=== PATIENT | male | born 1975 | race Caucasian/White ===

== ENCOUNTER 2021-06-14 10:00 | Inpatient (IN) | payer OTHER ==
[~2021-06-14] VITALS: Ht 180.3 cm; Wt 117.4 kg
[~2021-06-14 10:00] MED LIST: ALLO100; DAILY MULTIPLE1 EACH; IBUP800; Norvasc2.5 MG; OMEP20ER; Prinivil10 MG; RXOXYACE PO
[2021-06-14 10:57] LABS: BASOPHILS ABSOLUTE AUTO 0.01 K/mm3 (0.00-0.23); BASOPHILS PERCENT AUTO 0 % (0-2); EOSINOPHILS PERCENT AUTO 0 % (0-6); Hematocrit 41.2 % (37.0-53.0); Hemoglobin 14.3 g/dL (13.5-17.5); IMMATURE GRAN ABSOLUTE AUTO 0.01 K/mm3 (0.00-0.10); IMMATURE GRAN PERCENT AUTO 0 % (0-1); LYMPHOCYTES ABSOLUTE AUTO 0.48 K/mm3 (0.84-5.20); LYMPHOCYTES PERCENT AUTO 13 % (21-46); MONOCYTES ABSOLUTE AUTO 0.23 K/mm3 (0.16-1.47); MONOCYTES PERCENT AUTO 6 % (4-13); Mean Corpuscular HGB 30.2 pg (26.0-34.0); Mean Corpuscular HGB Conc 34.7 g/dL (31.5-36.5); Mean Corpuscular Volume 87 fL (80-100); Mean Platelet Volume 10.1 fL (9.1-12.4); NEUTROPHILS ABSOLUTE AUTO 2.93 K/mm3 (1.96-9.15); NEUTROPHILS PERCENT AUTO 80 % (41-73); Platelet Count 161 K/mm3 (150-400); RDW Coefficient Variation 12.4 % (11.7-14.2); RDW Standard Deviation 39.7 fL (35.1-46.3); Red Blood Cell Count 4.73 M/mm3 (4.30-5.90); White Blood Cell Count 3.66 K/mm3 (4.00-11.30)
[2021-06-14 11:05] LABS: Albumin, Blood 3.5 g/dL (3.4-5.0); Albumin/Globulin Ratio 0.8 (0.8-1.8); Bilirubin, Total 0.3 mg/dL (0.1-1.0); Bun/Creatinine Ratio 10.2 (12.0-20.0); Calcium, Blood 8.1 mg/dL (8.5-10.1); Creatinine, Blood 1.57 mg/dL (0.60-1.20); Globulin, Blood 4.2 g/dL (2.2-4.0); Potassium, Blood 3.8 mmol/L (3.5-5.5); Total Protein, Blood 7.7 g/dL (6.4-8.2)
[2021-06-14 11:23] LABS: International Normalized Ratio 1.06; Prothrombin Time Results 11.4 Sec (9.7-11.5)
--- NOTE | 2021-06-14 18:43 | NUR ---
REPORT OBTAINED VIA PHONE FROM BRENDA RN AT 1547, PT ARRIVED VIA STRETCHER AT 1610; AIRBORNE PRECAUTIONS OBSERVED; DINNER SERVED, FLUIDS INITIATED, IVS ASSESSED, PHYSICAL PRESENTATION ASSESSED, HEALTH HISTORY ASSESSED, AND PT ASSISTED TO BATHROOM; PT HAS CLEAR LUNG SOUNDS AND IS SATTING 86-89% ON 5LNC; PT DENIES ADDITIONAL CONCERNS AT THIS TIME
[2021-06-15 04:14] LABS: BASOPHILS PERCENT AUTO 0 % (0-2); EOSINOPHILS PERCENT AUTO 0 % (0-6); Hematocrit 38.2 % (37.0-53.0); Hemoglobin 13.2 g/dL (13.5-17.5); IMMATURE GRAN ABSOLUTE AUTO 0.01 K/mm3 (0.00-0.10); IMMATURE GRAN PERCENT AUTO 0 % (0-1); LYMPHOCYTES ABSOLUTE AUTO 0.49 K/mm3 (0.84-5.20); LYMPHOCYTES PERCENT AUTO 16 % (21-46); MONOCYTES ABSOLUTE AUTO 0.22 K/mm3 (0.16-1.47); MONOCYTES PERCENT AUTO 7 % (4-13); Mean Corpuscular HGB 29.9 pg (26.0-34.0); Mean Corpuscular HGB Conc 34.6 g/dL (31.5-36.5); Mean Corpuscular Volume 87 fL (80-100); Mean Platelet Volume 9.9 fL (9.1-12.4); NEUTROPHILS ABSOLUTE AUTO 2.33 K/mm3 (1.96-9.15); NEUTROPHILS PERCENT AUTO 76 % (41-73); Platelet Count 153 K/mm3 (150-400); RDW Coefficient Variation 12.4 % (11.7-14.2); RDW Standard Deviation 39.5 fL (35.1-46.3); Red Blood Cell Count 4.41 M/mm3 (4.30-5.90); White Blood Cell Count 3.05 K/mm3 (4.00-11.30)
[2021-06-15 04:37] LABS: Albumin, Blood 2.9 g/dL (3.4-5.0); Albumin/Globulin Ratio 0.8 (0.8-1.8); Bilirubin, Total 0.4 mg/dL (0.1-1.0); Bun/Creatinine Ratio 12.6 (12.0-20.0); Calcium, Blood 7.9 mg/dL (8.5-10.1); Creatinine, Blood 1.35 mg/dL (0.60-1.20); Globulin, Blood 3.6 g/dL (2.2-4.0); Potassium, Blood 3.9 mmol/L (3.5-5.5); Total Protein, Blood 6.5 g/dL (6.4-8.2)
--- NOTE | 2021-06-15 05:18 | NUR ---
SHIFT SUMMARY PT RESTED WELL THROUGH THE NIGHT. ALERT AND ORIENTED, ABLE TO MAKE NEEDS KNWON. COOPERATIVE WITH PLAN OF CARE. SATS 88-92% ON AIRVO 80%FIO2/50L. TAUGHT PATIENT PRONING - PT STATED THAT SEEMED TO HELP HIM SOME. TELE - NSR. NO C/O CHEST PAIN, BUT MUSCLE PAIN AROUND RIBS RELATED TO DRY COUGH. VOIDING TO URINAL, FREQUENT BM'S. VSS. CALL LIGHT WITHIN REACH, BED IN LOWEST POSITION. WILL CONTINUE TO MONITOR.
--- NOTE | 2021-06-15 19:41 | NUR ---
SHIFT SUMMARY: NO ACUTE CHANGES T/OUT SHIFT. PT CONTINUES A&OX4, MAINTAINING O2 SATS >90% ON AIRVO WITH 86% FIO2 AND 50 L/MIN. PT DENIES CHEST PAIN/PRESSURE, DOES C/O BODY ACHES AND CHEST WALL PAIN R/T COUGHING THAT IS RELIEVED BY PRN MEDICATIONS. PT DENIES PRONING POSITION R/T ABDOMINAL DISCOMFORT HE DESCRIBES GAS. PROVIDER NOTIFIED, PRN MEDICATIONS ORDERED AND GIVEN TO PT. SIN RHYTHM CONTINUES ON MONITOR. REMDESIVIR INFUSION INITIATED PER ORDERS, PT TOLERATED WELL, NS CONTINUES AT 100 ML/HR. REPORT HAS BEEN GIVEN TO KULDEEP LOPEZ TO ASSUME CARE OF PT.
--- NOTE | 2021-06-16 05:41 | NUR ---
SENIOR DATA MINING ANALYST SUMMARY PT WAS ABLE TO LAY PRONE FOR THE FIRST 4 HOURS OF THE SHIFT HOWEVER HIS O2 SATS HAVE REMIANED HIGHER WHEN HE IS ON HIS BACK OR HIS SIDE. O2 SATS WHILE PRONE RANGED FROM 82-90 BUT ON HIS BACK HE HAS REMAINED 88-95%. PT'S AIRVO SETTINGS HAVE BEEN 50L AT 88% ALL SHIFT. PT HAD ONE EPISODE OF DIARRHEA THIS SHIFT. PT'S O2 SATS TOLERATE AMBULATION WELL ALTHOUGH PT BECOMES RANDAL TACHYPNEIC WHILE UP. BP WNL AND STABLE THIS SHIFT. PT AFEBRILE THIS SHIFT W PEAK TEMP AT 98.5. WILL REPORT TO ONCOMING RN.
--- NOTE | 2021-06-16 19:45 | NUR ---
SHIFT SUMMARY: NO ACUTE CHANGES T/OUT SHIFT. PT CONTINUES A&OX4, AIRVO SETTINGS CONTINUE 88% AND 50 L/MIN WITH PT SATS MAINTAINED >90%, SR ON MONITOR. PT CONTINUES INDEPENDENT IN ROOM, TRANSITIONING FROM LYING TO SITTING TO BEDSIDE CHAIR WITH MINIMAL CHANGE IN O2 SATS. PT REPORTS 2 BOUTS OF DIARRHEA, DENIES CHANGE IN QUALITY. REPORT HAS BEEN GIVEN TO KULDEEP LOPEZ TO ASSUME CARE OF PT.
[2021-06-17 04:49] LABS: BASOPHILS PERCENT AUTO 0 % (0-2); EOSINOPHILS PERCENT AUTO 0 % (0-6); Hematocrit 39.2 % (37.0-53.0); Hemoglobin 13.4 g/dL (13.5-17.5); IMMATURE GRAN ABSOLUTE AUTO 0.02 K/mm3 (0.00-0.10); IMMATURE GRAN PERCENT AUTO 0 % (0-1); LYMPHOCYTES ABSOLUTE AUTO 0.48 K/mm3 (0.84-5.20); LYMPHOCYTES PERCENT AUTO 9 % (21-46); MONOCYTES ABSOLUTE AUTO 0.52 K/mm3 (0.16-1.47); MONOCYTES PERCENT AUTO 10 % (4-13); Mean Corpuscular HGB 29.6 pg (26.0-34.0); Mean Corpuscular HGB Conc 34.2 g/dL (31.5-36.5); Mean Corpuscular Volume 87 fL (80-100); Mean Platelet Volume 9.7 fL (9.1-12.4); NEUTROPHILS ABSOLUTE AUTO 4.27 K/mm3 (1.96-9.15); NEUTROPHILS PERCENT AUTO 81 % (41-73); Platelet Count 207 K/mm3 (150-400); RDW Coefficient Variation 12.6 % (11.7-14.2); RDW Standard Deviation 39.8 fL (35.1-46.3); Red Blood Cell Count 4.53 M/mm3 (4.30-5.90); White Blood Cell Count 5.29 K/mm3 (4.00-11.30)
[2021-06-17 05:05] LABS: Anion Gap 6 mmol/L (6-16); Blood Urea Nitrogen 21 mg/dL (8-24); Bun/Creatinine Ratio 18.4 (12.0-20.0); CO2, Blood 26 mmol/L (21-32); Calcium, Blood 8.4 mg/dL (8.5-10.1); Chloride, Blood 103 mmol/L (98-108); Creatinine, Blood 1.14 mg/dL (0.60-1.20); Glomerular Filtration Rate >60 (60-); Glucose, Blood 104 mg/dL (70-99); Potassium, Blood 4.1 mmol/L (3.5-5.5); Sodium, Blood 135 mmol/L (136-145)
--- NOTE | 2021-06-17 05:31 | NUR ---
CITY WEIGHMASTER SUMMARY PT PLACED ON BIPAP BY RT AT START OF THE SHIFT WHICH THE PT KEPT ON UNITL 0500 WHEN HE BECAME ANXIOUS AND REQUESTED A BREAK SO HE WAS PLACED BACK ON AIRVO 50L 88% FIO2. PT CONTINUED TO HAVE PRODUCTIVE COUGH, TX WITH CODEINE COUGH MEDICATION PER EMAR W IMPROVEMENT. PT HAD >2L URINE OUTPUT THIS SHIFT. NO EPISODES OF DIARRHE THIS SHIFT. WILL REPORT TO ONCOMING RN.
--- NOTE | 2021-06-17 12:13 | NUR ---
CARE COORDINATION REFERRAL - ADMIT: 06/14/21 DISCHARGE: DX:PNEUMONIA DUE TO COVID-19 CC: KWILCOX PILY CALL: PT AT HOME RESIDENCE: HOME WITH SPOUSE CAREGIVER: MARIS CROWLEY, SPOUSE / PARTNER, DX: HTN, CHRONIC HEP C, COVID-19, GOUT, SEE LIST DME: NONE CCM: NONE HOME HEALTH: NONE SUMMARY: 06/17/21- SPOKE WITH OVER THE PHONE. SHE REPORTS THAT PRIOR TO COMING INTO THE HOSPITAL, PT WAS INDEPENDENT AND DID NOT NEED CAREGIVERS OR HOME HEALTH. STATES THEIR HOME IS A 2-STORY HOME WITH WORKING UTILITIES. REPORTS THAT PT HAS NEVER HAD ISSUES WITH USING THE STAIRS. PRIOR TO COMING INTO THE HOSPITAL, PT WAS DRIVING AND ABLE TO MAKE IT TO APPT. REPORTS THAT PT DOES NOT HAVE POA AND SHE IS HIS NEXT OF KIN. PT'S PHARMACY IS [facility]. WANTED IT TO BE DOCUMENTED THAT THOSE IN THE HOME ARE ALSO RECOVERING FROM COVID AND IF THE PT IS GOING TO NEED SIGNIFICANT AMOUNT OF HELP, SHE IS NOT SURE IF THEY CAN PROVIDE THAT CARE FOR HIM. -NICOLE
--- NOTE | 2021-06-17 19:12 | NUR ---
PT'S OXYGEN THERAPY LEVEL AND ROUTE TITRATED BY RT; PT LUNG SOUNDS DIMINISHED IN BASES; BED PLACED IN REVERSE TRENDELENBURG FOR COMFORT WHILE PRONING BUT PT REPORTED ANXIETY WHEN PRONING; ACTIVE BS; PT HAD 2 BM, ONE FORMED, ONE LOOSE; PT ASSISTED TO RECLINER TO IMPROVE OXYGENATION; PT'S DIET CHANGED TO VANILLA ENSURE WITH FRUIT DUE TO TASTE DISTURBANCES; PT'S VSS; MOORE; PT HAD ADEQUATE URINE OUTPUT AND PO FLUID INTAKE; PT DENIES ADDITIONAL CONCERNS AT THIS TIME
--- NOTE | 2021-06-18 05:40 | NUR ---
SHIFT SUMMARY PATIENT FOUND TO BE AN ANXIOUS MAN WHO IS A&OX4 WITH GEN WEAKNESS. UP IND IN ROOM. PATIENT REFUSED BED ALL NIGHT AND STATED CHAIR MAKES HIM BREATH EASIER THAN ANYTHING ELSE. CONTINUED TO ENCOURAGE LAYING PRONE IN BED WITH REEDUCATION ON WHY PRONING IS IMPORTANT. PATIENT STILL REFUSED AND RESTED WELL IN CHAIR ALL NIGHT WITH NO ACUTE DISTRES. ON CPAP WITH FIO2 OF 60% SATING HIGH 90'S. PRODUCTIVE COUGH CONTINUES WITH ROBUTUSSIN HELPING WITH EXPECTORATING. Q4H TRAMADOL TO HELP WITH RIB PAIN AND FOUND STAYING ON TOP OF THIS PAIN GREATLY HELPS WITH HIS BREATHING ALSO. VSS. NSR. GOOD OUPUT PER URINAL. POOR APPETITE CONTINUES AND ENCOURAGING ORAL INTAKE TOLERATED. PICC CLOTTED THIS AM DURING LAB DRAW SO ATEPLASE DWELLING AT THIS TIME. NO ACUTE CONCERNS. WILL CONTINUE TO MONITOR UNTIL REPORT GIVEN TO BALAJI RN.
--- NOTE | 2021-06-18 08:00 | NUR ---
pt sitting up in a recliner chair with cpap on, he denies pain at this time, reports productive cough of yellow sputum, lungs are clear in upper nieves, dim in bases, resp even and unlabored, placed him on 14 liters high flow cannula so he could eat a bit of breakfast, he maintained about ten minutes before sats dropping to mid 70's, immed placed cpap and bounced back up pretty quickly, hrr, tele in place running sr per monitor, see strip, no edema noted, ppp+1, cap refill< 3sec, vs stable, afebrile, iv site is clear and patent, btx4, abd flat soft nontender, voids without diff, skin c/w/d, ext are cool, janelle gaytan, call light in reach, pt has been refusing to prone, spoke to him about the importance of it, he was agreeable to try today.
[2021-06-18 08:57] LABS: BASOPHILS PERCENT AUTO 0 % (0-2); EOSINOPHILS ABSOLUTE AUTO 0.01 K/mm3 (0.00-0.68); EOSINOPHILS PERCENT AUTO 0 % (0-6); Hematocrit 39.3 % (37.0-53.0); Hemoglobin 13.2 g/dL (13.5-17.5); IMMATURE GRAN ABSOLUTE AUTO 0.05 K/mm3 (0.00-0.10); IMMATURE GRAN PERCENT AUTO 1 % (0-1); LYMPHOCYTES ABSOLUTE AUTO 0.39 K/mm3 (0.84-5.20); LYMPHOCYTES PERCENT AUTO 7 % (21-46); MONOCYTES ABSOLUTE AUTO 0.55 K/mm3 (0.16-1.47); MONOCYTES PERCENT AUTO 10 % (4-13); Mean Corpuscular HGB 29.5 pg (26.0-34.0); Mean Corpuscular HGB Conc 33.6 g/dL (31.5-36.5); Mean Corpuscular Volume 88 fL (80-100); Mean Platelet Volume 9.7 fL (9.1-12.4); NEUTROPHILS ABSOLUTE AUTO 4.48 K/mm3 (1.96-9.15); NEUTROPHILS PERCENT AUTO 82 % (41-73); Platelet Count 236 K/mm3 (150-400); RDW Coefficient Variation 12.6 % (11.7-14.2); Red Blood Cell Count 4.48 M/mm3 (4.30-5.90); White Blood Cell Count 5.48 K/mm3 (4.00-11.30)
[2021-06-18 09:11] LABS: Alanine Aminotransfer (ALT/SGP 135 U/L (12-78); Albumin, Blood 2.9 g/dL (3.4-5.0); Albumin/Globulin Ratio 0.7 (0.8-1.8); Alk Phos 57 U/L (50-136); Anion Gap 5 mmol/L (6-16); Aspartate Aminotrans (AST/SGOT 145 U/L (12-37); Bilirubin, Total 0.6 mg/dL (0.1-1.0); Blood Urea Nitrogen 24 mg/dL (8-24); Bun/Creatinine Ratio 24.8 (12.0-20.0); CO2, Blood 27 mmol/L (21-32); Calcium, Blood 8.4 mg/dL (8.5-10.1); Chloride, Blood 104 mmol/L (98-108); Creatinine, Blood 0.97 mg/dL (0.60-1.20); Globulin, Blood 3.9 g/dL (2.2-4.0); Glomerular Filtration Rate >60 (60-); Glucose, Blood 95 mg/dL (70-99); Potassium, Blood 4.2 mmol/L (3.5-5.5); Sodium, Blood 136 mmol/L (136-145); Total Protein, Blood 6.8 g/dL (6.4-8.2)
[2021-06-18 09:53] LABS: BAND PERCENT MAN 2 % (0-8); BASOPHILS PERCENT MAN 0 % (0-2); EOSINOPHILS PERCENT MAN 0 % (0-6); LYMPHOCYTES ABSOLUTE MAN 0.32 K/mm3 (0.84-5.20); LYMPHOCYTES PERCENT MAN 6 % (21-46); MONOCYTES ABSOLUTE MAN 0.21 K/mm3 (0.16-1.47); MONOCYTES PERCENT MAN 4 % (4-13); MYELOCYTE ABSOLUTE MAN 0.05 K/mm3 (0.00-0.00); MYELOCYTE PERCENT MAN 1 % (0-0); NEUTROPHILS ABSOLUTE MAN 4.87 K/mm3 (1.96-9.15); SEG NEUTROPHILS PERCENT MAN 87 % (41-73); TOTAL CELLS COUNTED 100
--- NOTE | 2021-06-18 18:48 | NUR ---
pt tolerated being on airbo long enough to eat dinner. no complaints or needs. had some soup for dinner. call light in reach.
[2021-06-19 03:57] LABS: BASOPHILS ABSOLUTE AUTO 0.01 K/mm3 (0.00-0.23); BASOPHILS PERCENT AUTO 0 % (0-2); EOSINOPHILS PERCENT AUTO 0 % (0-6); Hematocrit 37.5 % (37.0-53.0); Hemoglobin 12.9 g/dL (13.5-17.5); IMMATURE GRAN ABSOLUTE AUTO 0.07 K/mm3 (0.00-0.10); IMMATURE GRAN PERCENT AUTO 1 % (0-1); LYMPHOCYTES ABSOLUTE AUTO 0.48 K/mm3 (0.84-5.20); LYMPHOCYTES PERCENT AUTO 6 % (21-46); MONOCYTES ABSOLUTE AUTO 0.68 K/mm3 (0.16-1.47); MONOCYTES PERCENT AUTO 9 % (4-13); Mean Corpuscular HGB 29.5 pg (26.0-34.0); Mean Corpuscular HGB Conc 34.4 g/dL (31.5-36.5); Mean Corpuscular Volume 86 fL (80-100); Mean Platelet Volume 9.3 fL (9.1-12.4); NEUTROPHILS ABSOLUTE AUTO 6.51 K/mm3 (1.96-9.15); NEUTROPHILS PERCENT AUTO 84 % (41-73); Platelet Count 248 K/mm3 (150-400); RDW Coefficient Variation 12.4 % (11.7-14.2); RDW Standard Deviation 39.3 fL (35.1-46.3); Red Blood Cell Count 4.37 M/mm3 (4.30-5.90); White Blood Cell Count 7.75 K/mm3 (4.00-11.30)
[2021-06-19 04:20] LABS: Alanine Aminotransfer (ALT/SGP 127 U/L (12-78); Albumin, Blood 2.8 g/dL (3.4-5.0); Albumin/Globulin Ratio 0.7 (0.8-1.8); Alk Phos 59 U/L (50-136); Anion Gap 6 mmol/L (6-16); Aspartate Aminotrans (AST/SGOT 102 U/L (12-37); Bilirubin, Total 0.7 mg/dL (0.1-1.0); Blood Urea Nitrogen 26 mg/dL (8-24); CO2, Blood 27 mmol/L (21-32); Calcium, Blood 8.5 mg/dL (8.5-10.1); Chloride, Blood 103 mmol/L (98-108); Creatinine, Blood 1.04 mg/dL (0.60-1.20); Glomerular Filtration Rate >60 (60-); Glucose, Blood 95 mg/dL (70-99); Potassium, Blood 4.1 mmol/L (3.5-5.5); Sodium, Blood 136 mmol/L (136-145); Total Protein, Blood 6.8 g/dL (6.4-8.2)
--- NOTE | 2021-06-19 04:55 | NUR ---
SHIFT SUMMARY NO ACUTE CHANGES THIS SHIFT. VSS. PT REMAINS AXO. IN SR. REMAINS DEPENDENT ON CPAP 7 CM H20 @ 65% FIO2. PT DID NOT TOLERATE NONREBREATHER 15L FOR MORE THAN 2 MINUTES BEFORE DESATTING TO <80%. PT HAS TRANSITIONED FROM BED TO CHAIR A FEW TIMES THIS SHIFT. STATES HAVING A COUPLE EPISODES OF WAKING UP NOT BEING ABLE TO BREATHER DE TO MUCOUS BUILDUP, PT TAKES A FEW MINUTES TO RECOVER FROM THIS. USING URINAL WELL. POWERGLIDE PATENT, NOT DRAWING BLOOD. PT STATES BREATHING FEELS "BETTER". OTHERWISE, PT RESTING OFF AND ON. REMAINS IN ISOLATION. WCTM.
--- NOTE | 2021-06-19 08:00 | NUR ---
pt sitting up in the chair, RT placed him on airvo for breakfast, he is tolerating at this time. a/ox3, pleasant and cooperative with care, follows commands well, denies pain except when he coughs, lungs are clear in upper nieevs, dim in bases, resp even, labored at times, veronica after coughing, report he proned last night and brought up a lot of phlem, he was also changed to bipap rather than cpap, hrr, tele in place running sr per monitor, see strip, no edema noted, ppp+1, cap refill <3sec, vs stable, ext are cool to touch, iv is power glide to amita, site is clear and patent, btx4, abd flat soft nontender, voids without diff, skin c/w/d, janelle gaytan, pt states he feels dry and is asking about iv fluids, call light in reach.
--- NOTE | 2021-06-19 17:21 | NUR ---
UPDATE 06/19/21: PT. NOT YET READY FOR DISCHARGE. ATTEMPTED TO REACH PATIENT'S MARIS. LEFT MESSAGE FOR HER TO RETURN MY CALL. [place] BLASTING CAP ASSEMBLER LOY FLANAGAN WAS ASSISTING WITH PATIENT'S CARE THROUGHOUT THE WEEK. PER HER NOTES "prior to coming into the hospital, pt was independent and did not need caregivers or home health. states their home is a 2-story home with working utilities. reports that pt has never had issues with using the stairs. Prior to coming into the hospital, pt was driving and able to make it to appt. reports that pt does not have POA and she is his next of kin. Pt's pharmacy is [facility], [place].". UNABLE TO PLAN FURTHER AT THIS POINT. I HAVE NOT RECEIVED A RETURN CALL FROM PATIENT'S .
--- NOTE | 2021-06-19 17:57 | NUR ---
pt has been tolerating airvo at 100% 02 for meals, sats are in the low 90's, he has been placed back on bipap at 70% when not eating, pt states he is feeling some better, has layed down for a short time but only on his side, he states it hurts on his belly. no further changes this shift. call light in reach.
--- NOTE | 2021-06-19 20:00 | NUR ---
PT SITTING IN CHAIR, LEGS DOWN. PT REPORTS FEELING COLD, TEMPERATURE TURNED UP IN ROOM, BLANKETS PLACED ON PT FOR COMFORT. PT REPORTS A HEADACHE - WILL MEDICATE PER ORDERS. NS INFUSING AT 75CC HOUR WITHOUT COMPLICATIONS TO L) UA POWER GLIDE. CAP REFILL WNL. PT REPORTS HE HAS A PRODUCTIVE COUGH WITH MILKY WHITE SPUTUM. PT REPORTS NAUSEA AFTER SWALLOWING SPUTUM BUT IS DECLINING MEDICATION FOR THIS NAUSEA. BIPAP IN PLACE - SETTINGS 11/04/70% - CONTINUOUS BIOX IN PLACE OUTSIDE OF ROOM. FLUIDS AT BEDSIDE.
--- NOTE | 2021-06-19 21:39 | NUR ---
PT OXYGEN LEVEL WAS RANGING BETWEEN 82-84%. PT SLEEPING IN THE CHAIR WITH HIS LEGS RAISED. CALLED RT OBIE, AND HE REQUESTED CHANGING OXYGEN TO 100% ON BIPAP - CHANGED TO 100% - SATS 94% NOW. OBIE RECOMMENDED PT GET INTO BED ON HIS SIDE, OR HIS PREFERENCE WOULD BE FOR PT TO PRONE IN BED - PT IS REFUSING, AND REPORTS AT "MIDNIGHT" HE WILL GET INTO BED. CALL LIGHT WITHIN REACH. FLUIDS AT BEDSIDE. WILL CONTINUE TO MONITOR.
--- NOTE | 2021-06-20 00:05 | NUR ---
PT STOOD AND TRANSFERRED TO PCU BED FROM CHAIR - PT TOLERATED STAND AND PIVOT WITHOUT COMPLICATIONS. PT LAYING ON HIS LEFT SIDE IN BED - PT REPORTS FEELING CLAUSTROPHOBIC - INSTRUCTED ON IMPORTANCE OF ASSISTANCE OF POSITIONING TO ASSIST WITH MUCOUS PRODUCTION - PT VERBALIZED UNDERSTANDING. CALL LIGHT, URINAL, FLUIDS AND BEDSIDE TABLE WITHIN REACH.
--- NOTE | 2021-06-20 00:56 | NUR ---
I SPOKE TO RUSTY, PHARMACIST [facility] REGARDING GUAIFENESIN DOSING, ALONG WITH PRN GUAIFENESIN DOSING - HE REPORTED MAX DOSING 1200MG BID. I SPOKE TO DR. ORELLANA, AND RECEIVED A NEW DOSE FOR GUAIFENESIN - SEE EMAR.
[2021-06-20 04:24] LABS: BASOPHILS ABSOLUTE AUTO 0.02 K/mm3 (0.00-0.23); BASOPHILS PERCENT AUTO 0 % (0-2); EOSINOPHILS PERCENT AUTO 0 % (0-6); Hematocrit 37.5 % (37.0-53.0); Hemoglobin 12.8 g/dL (13.5-17.5); IMMATURE GRAN ABSOLUTE AUTO 0.14 K/mm3 (0.00-0.10); IMMATURE GRAN PERCENT AUTO 1 % (0-1); LYMPHOCYTES PERCENT AUTO 5 % (21-46); MONOCYTES PERCENT AUTO 7 % (4-13); Mean Corpuscular HGB 29.5 pg (26.0-34.0); Mean Corpuscular HGB Conc 34.1 g/dL (31.5-36.5); Mean Corpuscular Volume 86 fL (80-100); Mean Platelet Volume 9.5 fL (9.1-12.4); NEUTROPHILS ABSOLUTE AUTO 10.95 K/mm3 (1.96-9.15); NEUTROPHILS PERCENT AUTO 87 % (41-73); Platelet Count 276 K/mm3 (150-400); RDW Coefficient Variation 12.3 % (11.7-14.2); RDW Standard Deviation 39.1 fL (35.1-46.3); Red Blood Cell Count 4.34 M/mm3 (4.30-5.90); White Blood Cell Count 12.61 K/mm3 (4.00-11.30)
[2021-06-20 04:48] LABS: Alanine Aminotransfer (ALT/SGP 132 U/L (12-78); Albumin, Blood 2.7 g/dL (3.4-5.0); Albumin/Globulin Ratio 0.7 (0.8-1.8); Alk Phos 61 U/L (50-136); Anion Gap 7 mmol/L (6-16); Aspartate Aminotrans (AST/SGOT 82 U/L (12-37); Bilirubin, Total 0.8 mg/dL (0.1-1.0); Blood Urea Nitrogen 27 mg/dL (8-24); Bun/Creatinine Ratio 26.2 (12.0-20.0); CO2, Blood 27 mmol/L (21-32); Calcium, Blood 8.7 mg/dL (8.5-10.1); Chloride, Blood 103 mmol/L (98-108); Creatinine, Blood 1.03 mg/dL (0.60-1.20); Glomerular Filtration Rate >60 (60-); Glucose, Blood 86 mg/dL (70-99); Sodium, Blood 137 mmol/L (136-145); Total Protein, Blood 6.7 g/dL (6.4-8.2)
--- NOTE | 2021-06-20 04:50 | NUR ---
REPORT FROM RADIATOR CLEANER - PT IS DRY HEAVING IN BIPAP MASK. MASK REMOVED AND HIGH FLOW 13L PLACED ON - PT'S SATS DROPPED TO 70%, CALLED RT FOR STAT ASSIST FOR AIRVO. PLACED BIPAP BACK ON FOR 1 MINUTE. OBIE FROM RT HERE - AIRVO PLACED ON 65L, 100% - SATS 85% - CONTINUING TO MONITOR. PT UP TO CHAIR, WITH SBA. OBIE, RT CONTINUES IN ROOM. PT REPORTS HE HAD A LARGE AMOUNT OF SPUTUM COME UP, NOT EMESIS, OR DRY HEAVING.
--- NOTE | 2021-06-20 06:45 | NUR ---
SHIFT SUMMARY - SEE PREVIOUS NN AT 0450, OTHERWISE NO ACUTE EVENTS TONIGHT. PT IS CURRENTLY ON CPAP SETTINGS - SEE RT NOTES. PT REPORTED HE DOESN'T LIKE LAYING IN BED, AND REPORTED HE GETS CLAUSTOPOBIC. PT IS CURRENTLY UP IN THE CHAIR, ATIVAN IV GIVEN X1, AND PT IS CURRENTLY SLEEPING. SATS CURRENTLY 91% ON CPAP SETTINGS. CALL LIGHT WITHIN REACH. PT TOLERATED PO FLUIDS.
--- NOTE | 2021-06-20 15:04 | NUR ---
PATIENT HAS BEEN ALERT AND ORIENTED, CALLS APPROPRIATELY. PT ON CPAP T/O SHIFT, CHANGED TO AIRVO FOR MEALS AND ORAL MEDS. PT APPEARED ANXIOUS AT START OF SHIFT, DECLINED TO EAT BREAKFAST BECAUSE HE FELT TOO SHORT OF BREATH. PT'S ANXIETY SEEMED TO IMPROVE AFTER REMAINING CONSISTENTLY ON CPAP THROUGH MORNING. HE WAS ABLE TO TOLERATE BEING OFF CPAP FOR LUNCH. PT UP IN RECLINER. COMPLAINED OF BACK/HIP PAIN, MEDICATED WITH TYLENOL PER EMAR. REPORT GIVEN TO JOHN LIGHT.
--- NOTE | 2021-06-20 15:06 | NUR ---
Asssmed care of this patient he is sitting up in the recliner with his cpap mask on. He is able to make his needs known and calls appropriately.
--- NOTE | 2021-06-20 17:31 | NUR ---
Shift Summary Pt has been a/o x 4 with c/o pain x 1 which was resolved with pain meds as ordered. He continues on Bipap but is now down to 75 % per RT. He does still desat when he removes the mask for eating or drinking. Pt is anxious to go home and has been sitting up in the recliner. He uses the urinal at the bedside. He is able to make his needs known. He currently has a visitor at the bedside.
[2021-06-21 04:15] LABS: Alanine Aminotransfer (ALT/SGP 132 U/L (12-78); Albumin, Blood 2.6 g/dL (3.4-5.0); Albumin/Globulin Ratio 0.6 (0.8-1.8); Alk Phos 60 U/L (50-136); Anion Gap 7 mmol/L (6-16); Aspartate Aminotrans (AST/SGOT 55 U/L (12-37); Bilirubin, Total 0.7 mg/dL (0.1-1.0); Blood Urea Nitrogen 30 mg/dL (8-24); Bun/Creatinine Ratio 29.4 (12.0-20.0); CO2, Blood 24 mmol/L (21-32); Calcium, Blood 8.7 mg/dL (8.5-10.1); Chloride, Blood 103 mmol/L (98-108); Creatinine, Blood 1.02 mg/dL (0.60-1.20); Glomerular Filtration Rate >60 (60-); Glucose, Blood 105 mg/dL (70-99); Potassium, Blood 4.3 mmol/L (3.5-5.5); Sodium, Blood 134 mmol/L (136-145); Total Protein, Blood 6.6 g/dL (6.4-8.2)
--- NOTE | 2021-06-21 06:03 | NUR ---
SHIFT SUMMARY PATIENT FOUND TO BE A&OX4 WITH INTERMITTENT ANXIETY. VSS. NSR IN THE 80'S. ON CPAP WITH 65-80%FIO2 ALL NIGHT SITTING UP IN CHAIR. PRN ATIVAN Q8H SEEMS TO REALLY HELP KEEP BREATHING STEADY AND HELPS PREVENT THE BACK TRACKING O2 BETHEA THAT ALWAYS COMES WITH THESE ANXIETY EPISODES. Q4H ULTRAM DOING WELL FOR INTERCOASTAL PAIN. PRODUCTIVE COUGH BECOMING LESS FREQUENT. ENCOURAGING ORAL INTAKE. VOIDING WELL PER URINAL. NO ACUTE CONCERNS AT THIS TIME. WILL CONITNUE TO MONITOR UNTIL REPORT GIVEN TO DAYSDANIA RN.
[2021-06-21 07:21] LABS: BASOPHILS ABSOLUTE AUTO 0.01 K/mm3 (0.00-0.23); BASOPHILS PERCENT AUTO 0 % (0-2); EOSINOPHILS PERCENT AUTO 0 % (0-6); Hematocrit 36.8 % (37.0-53.0); Hemoglobin 12.5 g/dL (13.5-17.5); IMMATURE GRAN ABSOLUTE AUTO 0.14 K/mm3 (0.00-0.10); IMMATURE GRAN PERCENT AUTO 1 % (0-1); LYMPHOCYTES ABSOLUTE AUTO 0.56 K/mm3 (0.84-5.20); LYMPHOCYTES PERCENT AUTO 4 % (21-46); MONOCYTES PERCENT AUTO 7 % (4-13); Mean Corpuscular HGB 29.9 pg (26.0-34.0); Mean Corpuscular Volume 88 fL (80-100); NEUTROPHILS ABSOLUTE AUTO 10.99 K/mm3 (1.96-9.15); NEUTROPHILS PERCENT AUTO 87 % (41-73); Platelet Count 265 K/mm3 (150-400); RDW Coefficient Variation 12.7 % (11.7-14.2); RDW Standard Deviation 40.6 fL (35.1-46.3); Red Blood Cell Count 4.18 M/mm3 (4.30-5.90)
--- NOTE | 2021-06-21 14:22 | NUR ---
Assumed care of this pt after he transferrd from [facility]. Per report h has been cpap depndent and is unable to have th cpap mask off even to eat. Dr Rivera was made aware and nutrition has been consulted. Pt has NS running as ordered. Dr started IV abo which is running now. VSS currently and h is on 85 % on th cpap with 96% sats. He is siting up in the recliner a/o x 4 at his baseline and he has made his family aware of his transfer. He has his call light in reach along with all of his personal items
[2021-06-21 14:45] LABS: PCO2 Arterial 34.7 mmHg (35-45); PO2 Arterial 62.2 mmHg (80-100); pH Blood Arterial 7.45 (7.35-7.45)
[2021-06-21 14:46] LABS: C-REACTIVE PROTEIN, EXT RANGE 13.4 mg/dL (0.000-0.300)
--- NOTE | 2021-06-21 15:29 | NUR ---
RN ATTEMPTED TO TITRATE CPAP 14 AT 85% TO HIGH FLOW AT 100% FOR PT TO EAT BREAKFAST BUT OXYGEN SATURATIONS DROPPED TO MID-70'S AND MAINTAINED FOR >5 MIN EVEN THOUGH PT WAS QUICKLY SWITCHED BACK TO CPAP MASK; PT UP IN CHAIR AND REPORTS THAT HE CAN'T PRONE BECAUSE IT MAKES HIM FEEL TOO ANXIOUS AND GIVES HIM A COUGHING FIT; CHEST XRAY TAKEN AT BEDSIDE; PT ONLY ABLE TO DRINK SMALL SIPS OF FLUID WITH GREAT ENCOURAGEMENT; PT REPORTS BEING VERY TIRED AND SCARED OF GOING TO THE ICU; DIETARY AND RESPIRATORY LIMITATIONS COMMUNICATED VERBALLY TO DR. WILSON AT BEDSIDE; TRANSFER ORDERS PLACED; PT TRANSFERRED VIA CHAIR WITH RNX2, RT, AND TECH, ON CPAP WITH IV FLUIDS INFUSING AND TELEMETRY MONITORING; PT TRANSFERRED TO ICU ROOM 13 AT 1358; REPORT GIVEN TO JOHN Al RN AT 1350; PT DENIES ADDITIONAL CONCERNS AT THIS TIME EXCEPT FOR WANTING TO SEE HIS AGAIN
--- NOTE | 2021-06-21 18:41 | NUR ---
Shift Summary Pt is a/o x 4 and has no c/o pain. He does remains anxious but that has improved with the precedex that the doctor ordered. A dobhoff was placed per dr orders and the placment has been verified with xray. He is now on Bipap @ 85 % with o2 sats in the high 80's-90's. Powerglide is patent and infusing. He continues to use the urinal. He has his call light in reach and is able to make his needs known.
--- NOTE | 2021-06-21 19:30 | NUR ---
PT BACK TO BED FOR POWERGLIDE INSERTION.
--- NOTE | 2021-06-21 19:30 | NUR ---
REPORT RECEIVED-CARE ASSUMED. PT OOB IN CHAIR ON BIPAP, SAT 89%. PRECEDEX INFUSING @ 0.3 MCK/KG/HR INTO RT UPPER ARM POWERGLIDE. REQUEST MADE FOR PLACMENT OF 2END POWERGLIDE, NURSING CARE ATTENDANT AWARE. CONTINUE ASSESSMENT AND CARE.
--- NOTE | 2021-06-21 20:27 | NUR ---
PT TRANSPORTED FROM ICU ROOM 13 TO ICU ROOM 9 FOR NEGITIVE PRESSURE.
--- NOTE | 2021-06-21 20:36 | NUR ---
DECREASED SATS-RT TO INCREASE BIPAP NOW 100%, 11/06. PT TURNED TO LEFT SIDE- CALL DIRECTOR ENERGY.
--- NOTE | 2021-06-21 20:54 | NUR ---
MD NOTIFICATION- DR. CARTER, PT WITH ONGOING DECREASED SATS. RT CHANGED BIAP SETTING,ATTEMPTED DIFFERENT POSITIONS IN BED WITH PILLOW SUPPORT- PT CONTINUES WITH DECREASED SATS, INCREASED RR30'S.VITALS NOTED IN FLOWSHEET. BS: DECREASED BASES WITH FINE CRACKLES. CONGESTED COUGH. PROGRESSIVE ASSEMBLER AND FITTER AWARE-MD ORDER TO HOLD TUBE FEED AT THIS TIME FOR INCREASED BIPAP PRESSURES NEEDED, MD AWARE ONLY ONE LINE-RAY POWERGLIDE INPLACE-UNABLE TO GET A SECOND LINE AT THIS TIME-(ATTEMPTS BY OTHER RN FAILED AT THIS TIME.) 2100 CHANGE TO CPAP OF 14 PER MD ORDER TO RT-WAIT 30 MIN, IF NOW CHANGE-RETURN CALL TO ,MD. CONTINUE ASSESSMENTS AND CARE.
--- NOTE | 2021-06-21 21:28 | NUR ---
POWERGLIDE PLACE BY ANITA VEE.
--- NOTE | 2021-06-21 21:54 | NUR ---
MD NOTIFICATION DR. [id number]-[id number] 86%-RR>30 ON CPAP-PT REFUSES TO PRONE OR TURN. MD ORDER-INCREASE PRECEDEX TO 0.7MCG/KG/MIN. INCREASE CPAP TO 15. 2150-CHANGES MADE PER MD ORDER. CONTINUE TO ASSESS.
[2021-06-21 22:26] LABS: PCO2 Arterial 35.3 mmHg (35-45); PO2 Arterial 57.9 mmHg (80-100); pH Blood Arterial 7.44 (7.35-7.45)
--- NOTE | 2021-06-21 22:26 | NUR ---
MD NOTIFICATION-REPORT RR 20-25, SATS 86%. MD ORDER ABG STAT.
--- NOTE | 2021-06-21 22:49 | NUR ---
MD NOTIFIED OF ABG RESULTS-ON HER WAY TO BEDSIDE FOR INTUBATION. SEE MD NOTES
[2021-06-22 00:07] LABS: Source, Urine Catheter
[2021-06-22 00:10] LABS: Bilirubin, Urine Neg (Neg); Blood, Urine 5+ (Neg); Glucose Qualitative, Urine Neg (Neg); Ketones, Urine Neg (Neg); Leukocyte Esterase, Urine Neg (Neg); Nitrite, Urine Neg (Neg); Protein, Urine 2+ (Neg); Specific Gravity, Urine 1.015 (1.003-1.022); Urobilinogen, Urine NORM (Normal)
[2021-06-22 00:16] LABS: Appearance, Urine Clear (Clear); Color, Urine Yellow (P-Yellow)
[2021-06-22 00:17] LABS: Bacteria Not Seen /hpf; Red Blood Cells, Urine TNTC /hpf (0-2); Squamous Epithelial Cells Not Seen /hpf (Few); White Blood Cells, Urine Not Seen /hpf (0-5)
--- NOTE | 2021-06-22 00:22 | NUR ---
UPDATE PT IS INTUBATED, SEDATED ON PROPOFOL, PARALYZED ON NIMBEX. VITALS IN FLOWSHEET. MD LEAVING ROOM NOW. NEW ORDERS NOTED AND STARTED. CONTINE ASSESSMENT & CARE.
--- NOTE | 2021-06-22 00:26 | NUR ---
ASSESS BIS 41, TO4 4 OUT OF 4 AT 8.
--- NOTE | 2021-06-22 01:37 | NUR ---
ASSESS FULL ASSESSMENT DONE AND CHARTED IN FLOWSHEET. PT NOW INTUBATED SEDATED AND PARALYZED. -SEE DR. CARTER NOTE 06/22/21- SEE FLOWSHEET & MAR FOR MEDS & DRIPS. CONTINUE ASSESSMENTS AND CARE.
[2021-06-22 03:19] LABS: PCO2 Arterial 60.3 mmHg (35-45); PO2 Arterial 83.4 mmHg (80-100); pH Blood Arterial 7.22 (7.35-7.45)
[2021-06-22 03:51] LABS: BASOPHILS ABSOLUTE AUTO 0.02 K/mm3 (0.00-0.23); BASOPHILS PERCENT AUTO 0 % (0-2); EOSINOPHILS PERCENT AUTO 0 % (0-6); Hematocrit 35.8 % (37.0-53.0); Hemoglobin 11.7 g/dL (13.5-17.5); IMMATURE GRAN ABSOLUTE AUTO 0.23 K/mm3 (0.00-0.10); IMMATURE GRAN PERCENT AUTO 1 % (0-1); LYMPHOCYTES ABSOLUTE AUTO 0.38 K/mm3 (0.84-5.20); LYMPHOCYTES PERCENT AUTO 2 % (21-46); MONOCYTES ABSOLUTE AUTO 1.12 K/mm3 (0.16-1.47); MONOCYTES PERCENT AUTO 7 % (4-13); Mean Corpuscular HGB 29.5 pg (26.0-34.0); Mean Corpuscular HGB Conc 32.7 g/dL (31.5-36.5); Mean Corpuscular Volume 90 fL (80-100); Mean Platelet Volume 9.6 fL (9.1-12.4); NEUTROPHILS ABSOLUTE AUTO 14.82 K/mm3 (1.96-9.15); NEUTROPHILS PERCENT AUTO 89 % (41-73); Platelet Count 275 K/mm3 (150-400); RDW Coefficient Variation 12.6 % (11.7-14.2); Red Blood Cell Count 3.97 M/mm3 (4.30-5.90); White Blood Cell Count 16.57 K/mm3 (4.00-11.30)
--- NOTE | 2021-06-22 03:51 | NUR ---
ASSESS PT REMAINS SEDATED ON PROPOFOL 60 MCK/KG/MIN-FENT POWER ORIGINATOR @ 100 MCG/HR. PARALYZED WITH NIMBEX @ 1. BIS=40-50, TO4 = 4OUT OF 4 ON 5 INTENSITY. LABS SENT. ABG DONE. WAITING RESULTS.
[2021-06-22 04:11] LABS: Alanine Aminotransfer (ALT/SGP 126 U/L (12-78); Albumin, Blood 2.2 g/dL (3.4-5.0); Albumin/Globulin Ratio 0.5 (0.8-1.8); Alk Phos 64 U/L (50-136); Anion Gap 7 mmol/L (6-16); Aspartate Aminotrans (AST/SGOT 52 U/L (12-37); Bilirubin, Total 0.8 mg/dL (0.1-1.0); Blood Urea Nitrogen 34 mg/dL (8-24); Bun/Creatinine Ratio 30.1 (12.0-20.0); CO2, Blood 25 mmol/L (21-32); Calcium, Blood 8.3 mg/dL (8.5-10.1); Chloride, Blood 106 mmol/L (98-108); Creatinine, Blood 1.13 mg/dL (0.60-1.20); Globulin, Blood 4.1 g/dL (2.2-4.0); Glomerular Filtration Rate >60 (60-); Glucose, Blood 114 mg/dL (70-99); Magnesium, Blood 2.4 mg/dL (1.6-2.4); Phosphorus, Blood 6.6 mg/dL (2.5-4.9); Sodium, Blood 138 mmol/L (136-145); Total Protein, Blood 6.3 g/dL (6.4-8.2)
--- NOTE | 2021-06-22 06:16 | NUR ---
END OF SHIFT NOTE PT INTUBATED DURING NIGHT FOR DECREASED PAO2, RESPIRATORY FAILURE-SEE MD CHARTING-MD CALLED TO UPDATE. SEE FLOWSHET FOR GTT RATES. PT REMAINS ON VENT, SEDATED & PARALYZED. DOBHOFF IN PLACE TUBE FEED WAS HELD OVERNIGHT-MD DISCUSSED STARTING TODAY. CRITICAL PH THIS AM-VENT SETTINGS CHANGED-VBG ORDERED AT 8AM. I&O'S AND VITALS IN FLOWSHEET. CONTINUE CARE TILL REPORT OFF TO ONCOMING SHIFT RN.
[2021-06-22 09:12] LABS: Base Excess Venous -3.8 mmol/L; Bicarbonate Venous 20.8 mmol/L (24.0-30.0); PCO2 Venous 47.4 mmHg (38-42); pH Blood Venous 7.29 (7.34-7.37)
--- NOTE | 2021-06-22 11:34 | NUR ---
late am notes.... AT APPROX 0830 ENTERED PT ROOM WHERE PROPOFOL GT WAS SUSPENDED ALARMING AND NEEDING NEW BOTTLE. PT SATS WERE NOTED IN 82-4 RANGE WITH BIZ ELEVATED FROM 40 RANGE TO 85+ RANGE. NIMBEX TITRATED TO CURRENT LEVEL, SEE NOTE. PROPOFOL, NEOSYN, FENT GTT'S NOTED AND TITRATED, SEE FLOWSHEET. PT WAS ULTIMITLY PLACED IN VERY SLIGHT REVERSE TREND, GTT'S TITRATED UP AND PT SLOWLY RECOVERED TO LOW 90 RANGE, SEE VS. DR ALMONTE CAME IN TO SEE AND ASSESS PT. CENTRAL LINE WITH F/U CXR WERE PLACED CONFIRMED PER DR JAY AND GTTS CHANGED OVER FROM P.G. LINES TO CENTRAL LINES. VENT WAS CHANGED PER DR ALMONTE ORDER TO PEEP 20 WITH AC MODE, 500 TV AND 100% FIO2. NEW ORDERD NOTED AND COMPLETED, SEE EMAR.
--- NOTE | 2021-06-22 12:10 | NUR ---
HAVE SHIFTED PTS HIPS FOR POSITION CHANGE AND TIGHTENED LINENS. ON CURRENT SEDATION AND SL REVERSE TREND. PT SATS HOLDING AT 92-4 RANGE ON 20 PEEP AND 100% AC WITH TV OF 500. ECHOCARD. PENDING AND THEN WILL PRONE PT.
--- NOTE | 2021-06-22 14:10 | NUR ---
1300...ATTEMPTED TO PRONE PT. SATS DROPPED TO 70'S AND WERE NOT RECOVERING. PRONING ABANDONED AND PT AGAIN PLACED IN SIGHT TREND. ON SAME SETTINGS AND SATS RECOVERED TO 92-4 RANGE ON SAME SETTINGS. PT WAS STARTED ON VHP AT 20 WITH Q4 HR 30ML FLUSH PER MARCO OKSANA. BIZ REMAINS AT 46-54 RANGE CURRENTLY.
[2021-06-22 15:00] LABS: PCO2 Arterial 49.1 mmHg (35-45); PO2 Arterial 82.1 mmHg (80-100)
[2021-06-22 15:01] LABS: pH Blood Arterial 7.29 (7.35-7.45)
--- NOTE | 2021-06-22 18:15 | NUR ---
PT DAUGHTER IN TO VISIT. PT HOB RASIED TO APPROX 20 DEG. AND PT TOLERATED MOVE WELL. WILL EVALUATE PRIOR TO SIDE TURNING. VENT SETTINGS REMAIN UNCHANGED. GTT SETTINGS NOTED AND VSS CURRENTLY. I/O NOTED. SHORT UPDATE GIVEN TO DR ALMONTE AND SHE GAVE SHORT REPORT TO DAUGHTER.
--- NOTE | 2021-06-23 07:04 | NUR ---
END OF SHIFT SUMMARY: PATIENT HAS REMAINED INTUBATED/SEDATED/PARALYZED OVERNIGHT IN SUPINE POSITION. 1 ATTEMPT AT POSITION CHANGE AND DESATS TO LOW 90S. NO CHANGED TO VENT SETTINGS OVERNIGHT EITHER. TOF HAS BEEN 1/4-2/4. NIMBEX ADJUSTED DOWN FROM 4 TO 3. ATTEMPTED TO DECREASED RATE OF MARIANO AND BP DIPS QUICKLY PROBABLY DUE TO BEING SO SEDATED SO STILL INSUSING AT 30. NO BATH DONE OVERNIGHT DUE TO PATIENT BEING SO UNSTABLE. GREAT URINE OUTPUT. LABS PENDING. RESTRAINTS REMAIN ON OF NOW
[2021-06-23 07:13] LABS: Anion Gap 8 mmol/L (6-16); Blood Urea Nitrogen 34 mg/dL (8-24); Bun/Creatinine Ratio 30.1 (12.0-20.0); CO2, Blood 21 mmol/L (21-32); Calcium, Blood 8.1 mg/dL (8.5-10.1); Chloride, Blood 109 mmol/L (98-108); Creatinine, Blood 1.13 mg/dL (0.60-1.20); Glomerular Filtration Rate >60 (60-); Glucose, Blood 102 mg/dL (70-99); Magnesium, Blood 2.6 mg/dL (1.6-2.4); Phosphorus, Blood 4.6 mg/dL (2.5-4.9); Potassium, Blood 4.9 mmol/L (3.5-5.5); Sodium, Blood 138 mmol/L (136-145)
--- NOTE | 2021-06-23 08:00 | NUR ---
Oral care, cath care, and full bath given and repositioned . All med per mar administered. He is intunbated and paralyzed. He has 8.0 ET and 26 cm at lips with vent settings of 24/500/20/95% and sats 93%. He has CL RIJ dressing intact and site WNL's infusing Asael-synepherine and 30 mcg/min, Nimbex at 3 mcg/kg/min, NS at 100 mlm/hr and Fentanyl at 100 mcg/hr. He hac 20ga Power glide in RAY and is infusing 50 mcg/kg/min Propofol. He also has 20ga PowerGlide in NANDA dressing intact and site WNL's He has 16 Fr mccauley draining to gravity lor colored urine. BIS 45-55 and TO4 1/4.
--- NOTE | 2021-06-23 10:04 | NUR ---
No significant chnages with patient. No changes to vent or gtt settings. BIS at 45-60, TO4 1/.VSS, See EMR.
--- NOTE | 2021-06-23 12:50 | NUR ---
Dr Godfrey by and made some slight changes to vent and TV 480, FiO2 95%. reduced Nimbex to 2 mcg/kg/min, Asael-synepherine 20 mcg/min. No other significant changes. called and gave updates, she stated she has been sick and advised her to stay home with no visits until better.
--- NOTE | 2021-06-23 15:30 | NUR ---
Reduced Asael-synepherine to 10 mcg/min and Nimbex to 1.5 mcg/kg/min and Propofol to 45 mcg/kg/min. VSS, See EMR BIS 50-60, TO4 1-2/4. Repositioned patient. Reduced FiO2 to 85% and sats 93%. Dr Godfrey by and check patient.
--- NOTE | 2021-06-23 18:43 | NUR ---
Current vent settings 24/480/20/85 and sats 94%. Propofol at 45 mcg/kg min, Nimbex at 1.5 mcg/kg/min, Fentanyl at 100 mcg/hr and Asael-synepherine on standby. No changes to TF through Dobhoff. Reyes had 2300 light lor output.
--- NOTE | 2021-06-23 20:30 | NUR ---
INITIAL ASSESSMENT: VENT SETTINGS REMAIN AT 480/24/20PEEP/85% ORAL CARE AND REPOSITIONING PERFORMED. BIS MONITOR 55-70 INITIALLY. TOF SHOWING 4/4 TWITCHES ON A SETTING OF 6. NIMBEX INCREASED TO 2 AND PROPOFOL ALSO INCREASED DUE TO ST 110-120 AND SBP IN 160S. SPOKE TO DR. ALMONTE AND SHE WAS CONCERNED THAT BE MAY NEED MORE SEDATION. MOY DRAINING TO GRAVITY. WILL CONTINUE TO REPOSITION LONG TOLERATED AND ADJUST DRIPS ACCORDINGLY.
[2021-06-24 03:44] LABS: pH Blood Arterial 7.25 (7.35-7.45)
[2021-06-24 03:45] LABS: PCO2 Arterial 58.8 mmHg (35-45); PO2 Arterial 55.4 mmHg (80-100)
[2021-06-24 04:18] LABS: BASOPHILS ABSOLUTE AUTO 0.01 K/mm3 (0.00-0.23); BASOPHILS PERCENT AUTO 0 % (0-2); EOSINOPHILS ABSOLUTE AUTO 0.28 K/mm3 (0.00-0.68); EOSINOPHILS PERCENT AUTO 4 % (0-6); Hematocrit 39.3 % (37.0-53.0); Hemoglobin 12.2 g/dL (13.5-17.5); IMMATURE GRAN ABSOLUTE AUTO 0.13 K/mm3 (0.00-0.10); IMMATURE GRAN PERCENT AUTO 2 % (0-1); LYMPHOCYTES ABSOLUTE AUTO 0.48 K/mm3 (0.84-5.20); LYMPHOCYTES PERCENT AUTO 6 % (21-46); MONOCYTES ABSOLUTE AUTO 0.56 K/mm3 (0.16-1.47); MONOCYTES PERCENT AUTO 8 % (4-13); Mean Corpuscular HGB 29.5 pg (26.0-34.0); Mean Platelet Volume 9.6 fL (9.1-12.4); NEUTROPHILS PERCENT AUTO 81 % (41-73); Platelet Count 253 K/mm3 (150-400); RDW Coefficient Variation 13.4 % (11.7-14.2); RDW Standard Deviation 47.8 fL (35.1-46.3); Red Blood Cell Count 4.13 M/mm3 (4.30-5.90); White Blood Cell Count 7.46 K/mm3 (4.00-11.30)
[2021-06-24 04:19] LABS: Mean Corpuscular Volume 95 fL (80-100)
[2021-06-24 04:37] LABS: Anion Gap 5 mmol/L (6-16); Blood Urea Nitrogen 33 mg/dL (8-24); Bun/Creatinine Ratio 29.5 (12.0-20.0); CO2, Blood 25 mmol/L (21-32); Calcium, Blood 7.9 mg/dL (8.5-10.1); Chloride, Blood 108 mmol/L (98-108); Creatinine, Blood 1.12 mg/dL (0.60-1.20); Glomerular Filtration Rate >60 (60-); Glucose, Blood 92 mg/dL (70-99); Magnesium, Blood 2.4 mg/dL (1.6-2.4); Phosphorus, Blood 3.7 mg/dL (2.5-4.9); Potassium, Blood 5.3 mmol/L (3.5-5.5); Sodium, Blood 138 mmol/L (136-145)
--- NOTE | 2021-06-24 06:13 | NUR ---
END OF SHIFT SUMMARY: CRITICAL ABG THIS MORNING- PH 7.25 and P02 55. SPOKE WITH DR. ALMONTE AND ORDERS PLACED TO INCREASE RR TO 28 FROM 24 AT 0450. PATIENT IS BACK AT 100% FIO2 DUE TO SATS HOLDING AT 87-88% AND A TERRIBLE PO2. PATIENT HAS TOLERATED MOST POSITION CHANGES THROUGHOUT THE NIGHT EXCEPT A FEW WHEN IT TAKES HIM LONGER TO RECOVER IN THE MID TO LOW 80S. PATIENT SUPINE CURRENTLY. GREAT URINE OUTPUT. REMAINS SEDATED/PARALYZED. WILL CONTINUE TO MONITOR
--- NOTE | 2021-06-24 08:32 | NUR ---
UPDATE 06/23/21: PER CHART REVIEW WITH DR. KIRAN, NO ANTICIPATED DISCHARGE DATE AT THIS TIME. UPDATE 06/22/2021: NEVER RECEIVED RETURN CALL FROM PATIENT'S MARIS. DR. KIRAN HAS BEEN COMMUNICATING WITH PATIENTS SON HE HAS BEEN AN INPATIENT. PATIENT'S CONDITION IS NOT STABLE. NO ANTICIPATED DISCHARGE DATE/TIME.
--- NOTE | 2021-06-24 10:40 | NUR ---
ASSUMED CARE OF PT, REPORT RCV'D FROM KULDEEP DAVIES. PT INTUBATED, SEDATED AND PARALYZED. VENT SETTINGS AC 24/480/20/100%. NIMBEX @ 2.5 MCG/KG/MIN WITH TRAIN OF 4- 2/4 RIGHT EYEBROW. PROPOFOL @ 45 MCG/KG/MIN, BIS MONITOR 43-45. FENTANYL GTT @ 100 MCG/HR. PT TACHY WITH PERIODS OF HYPOTENSION. DOBHOFF IN PLACE, VITAL HIGH PROTEIN AT GOAL RATE 20 ML/HR, TUBE FLUSHES. TEMP MOY PATENT AND DRAINING CLEAR YELLOW URINE. PT REPOSITIONED TOLERATED AND PER PROTOCOL. SEE FULL SHIFT ASSESSMENT.
[2021-06-24 11:48] LABS: PCO2 Arterial 50.5 mmHg (35-45); PO2 Arterial 63.2 mmHg (80-100)
--- NOTE | 2021-06-24 13:30 | NUR ---
CALLED AND LEFT MESSAGE FOR LOY FLANAGAN, VACUUM CONDITIONER OPERATOR FOR [facility] TO ASSIST PT WITH GETTING MEDICAL INSURANCE PRIOR TO TRANSFER FOR ECMO.
--- NOTE | 2021-06-24 14:24 | NUR ---
Spoke with RN and Josy with [facility] re: request for assist with obtaining medical insurance for pt. Eleni will reach out to pt's and family again for this purpose.
--- NOTE | 2021-06-24 14:37 | NUR ---
MIDSHIFT ASSESSMENT. PT STATUS REMAINS UNCHANGED. TRAIN OF 4- 2/4, NIMBEX INFUSION RATE UNCHANGED. BIS MONITOR 45, PROPOFOL AND FENTANYL GTT RATES UNCHANGED. PT TEMP 100.6, VSS.
--- NOTE | 2021-06-24 16:22 | NUR ---
Update 06/24/21: Pt. in need of ECMO. Anticipating transfer to [facility] or [facility]. Pt. is uninsured. I was able to reach patient's Anastasia today to discuss insurance. Based on previous income, pt. does not qualify for Medicaid. I have requested Ryder from [facility] assist in determining what other possibly financial resources the pt. qualifies for. If transferred, we will also reach out to the receiving hospital to request assistance for the pt. and his family.
--- NOTE | 2021-06-24 17:03 | NUR ---
SHIFT SUMMARY PT REMAINS INTUBATED, VENT SETTINGS AC 26/480/20/90% WITH SATS 93%, RR 26. PT ON NIMBEX AT 2 MCG/KG/MIN (DECREASED FROM 2.5 MCG/KG/MIN D/T / ON TRAIN OF 4) CURRENT TRAIN OF FOUR- /. PROPOFOL AT 45 MCG/KG/MIN, FENTANYL GTT @ 100 MCG/KG/MIN. BIS MONITOR 39-45. PT ABLE TO TOLERATE CPT VEST IN 20 MINUTE INCREMENTS WITH LITTLE DESATURATION. LUNG SOUNDS CLEAR BILATERAL UPPER, COARSE BILATERAL LOWER THAT IS MUCH IMPROVED T/O SHIFT. MINIMAL SECRETIONS SUCTIONED FROM ETT. PT SINUS TACH WITH HR 110-125 FOR MOST OF SHIFT. BLOOD PRESSURE WNL WITH SBP 120-130'S. TMAX 100.9. PLAN FOR [facility] TEAM TO ARRIVE THIS EVENING TO CANNULATE PT IN PREPARATION FOR PT TO TRANSFER TO [facility] FOR ECMO. SEE PREVIOUS NOTES FROM THIS SHIFT. WILL REPORT TO ONCOMING NURSE.
[2021-06-25 04:22] LABS: Base Excess Venous -1.7 mmol/L; Bicarbonate Venous 22.1 mmol/L (24.0-30.0); PCO2 Venous 54.1 mmHg (38-42); PO2 Venous 45.8 mmHg (38-42); pH Blood Venous 7.28 (7.34-7.37)
[2021-06-25 04:40] LABS: BASOPHILS ABSOLUTE AUTO 0.01 K/mm3 (0.00-0.23); BASOPHILS PERCENT AUTO 0 % (0-2); EOSINOPHILS ABSOLUTE AUTO 0.29 K/mm3 (0.00-0.68); EOSINOPHILS PERCENT AUTO 3 % (0-6); Hematocrit 38.1 % (37.0-53.0); Hemoglobin 12.2 g/dL (13.5-17.5); IMMATURE GRAN ABSOLUTE AUTO 0.17 K/mm3 (0.00-0.10); IMMATURE GRAN PERCENT AUTO 2 % (0-1); LYMPHOCYTES PERCENT AUTO 6 % (21-46); MONOCYTES ABSOLUTE AUTO 0.68 K/mm3 (0.16-1.47); MONOCYTES PERCENT AUTO 6 % (4-13); Mean Corpuscular HGB 30.3 pg (26.0-34.0); Mean Corpuscular Volume 95 fL (80-100); Mean Platelet Volume 9.5 fL (9.1-12.4); NEUTROPHILS ABSOLUTE AUTO 8.99 K/mm3 (1.96-9.15); NEUTROPHILS PERCENT AUTO 84 % (41-73); Platelet Count 237 K/mm3 (150-400); RDW Coefficient Variation 13.6 % (11.7-14.2); RDW Standard Deviation 47.5 fL (35.1-46.3); Red Blood Cell Count 4.02 M/mm3 (4.30-5.90); White Blood Cell Count 10.74 K/mm3 (4.00-11.30)
[2021-06-25 05:03] LABS: Anion Gap 5 mmol/L (6-16); Blood Urea Nitrogen 39 mg/dL (8-24); Bun/Creatinine Ratio 34.8 (12.0-20.0); CO2, Blood 24 mmol/L (21-32); Calcium, Blood 7.8 mg/dL (8.5-10.1); Chloride, Blood 109 mmol/L (98-108); Creatinine, Blood 1.12 mg/dL (0.60-1.20); Glomerular Filtration Rate >60 (60-); Glucose, Blood 120 mg/dL (70-99); Magnesium, Blood 2.3 mg/dL (1.6-2.4); Phosphorus, Blood 3.9 mg/dL (2.5-4.9); Potassium, Blood 5.3 mmol/L (3.5-5.5); Sodium, Blood 138 mmol/L (136-145)
--- NOTE | 2021-06-25 05:38 | NUR ---
END OF SHIFT SUMMARY: PATIENT REMAINS INTUBATED/SEDATED & PARALYZED. NO VENT CHANGES HAVE BEEN MADE OVERNIGHT. SPOKE WITH DR. ALMONTE AND TRANSFER CENTER ABOUT PLAN FOR TODAY AND [facility] SHOULD BE HERE AROUND 0800 FOR CANNULATION. THE [place] TEAM WILL ARRIVE FOR TRANSFER AROUND 1130. 2/4 ON TOF. MODERATE SECRETIONS. WILL CONTINUE TO MONITOR UNTIL TEAM ARRIVES
[2021-06-25 08:11] LABS: Magnesium, Blood 2.3 mg/dL (1.6-2.4); Potassium, Blood 5.4 mmol/L (3.5-5.5)
--- NOTE | 2021-06-25 09:40 | NUR ---
Echocardiogram using 0.60ml of Definity contrast performed.
--- NOTE | 2021-06-25 09:45 | NUR ---
ASSUMED CARE OF PT, REPORT RCV'D FROM KULDEEP DAIVES. PT INTUBATED VENT SETTINGS AC 24/480/20/100%, SEDATED WITH PROPOFOL 45 MCG/KG/MIN AND FENTANYL GTT @ 100 MCG/HR, BIS MONITOR 39-45. NIMBEX @ 2.5 MCG/KG/MIN. PT IN AFIB RVR WITH HR 160-215 @0700. 150 MG AMIODORONE PUSH GIVEN WITH NO IMPROVEMENT @0730. AMIODORONE GTT STARTED AT 33.3 ML/HR @0900 . HR CONTINUES IN THE 180-190'S. ESMOLOL STARTED AT 50 MCG/KG/MIN AND REDUCED TO 25 MCG/KG/MIN D/T HYPOTENSION. DR. CABAN AT BEDSIDE, SUCCESSFUL INSERTION OF RIGHT RADIAL ART LINE. PT CONTINUES TO BE HYPOTENSIVE, ESMOLOL PLACED ON STANDBY AT 0930 AND NEOSYNEPHRINE GTT STARTED AT 100 MCG/MIN. BLOOD PRESSURE STABLE AT THIS TIME WITH SBP 97-102 AND MAP>60. HR 115-120. PLAN FOR [facility] AND [facility] TEAM TO COME TO [facility] TO PREPARE PT FOR TRANSPORT FOR ECMO.
--- NOTE | 2021-06-25 10:41 | NUR ---
[facility] AT BEDSIDE
[2021-06-25 12:42] LABS: PCO2 Arterial 49.5 mmHg (35-45); PO2 Arterial 70.8 mmHg (80-100); pH Blood Arterial 7.26 (7.35-7.45)
[2021-06-25 13:40] LABS: PCO2 Arterial 47.2 mmHg (35-45); PO2 Arterial 87.7 mmHg (80-100); pH Blood Arterial 7.26 (7.35-7.45)
--- NOTE | 2021-06-25 14:28 | NUR ---
PT SUCCESSFULLY STARTED ON ECMO BY [facility] TEAM AND HANDED OFF TO [facility] DOCTOR AND TEAM. PT DEPARTED [facility] ICU AT 1400. REPORT CALLED TO KULDEEP HIGGINS. CALLED PT'S AND UPDATED HER AND GAVE HER PHONE NUMBER TO [facility] FOR UPDATES.
--- NOTE | 2021-06-25 14:32 | NUR ---
CALLED PT'S , DAUGHTER WILL SUPERVISOR SHIPFITTERS PT'S BELONGINGS THIS EVENING.
--- NOTE | 2021-06-29 17:25 | NUR ---
Update 06/26/21: Pt. discharged to [facility] with assistance from [facility] team due to need for ECMO. [facility] staff will continue to assist family as needed with resources.
== END 2021-06-25 14:36 | disposition short-term general hospital (02) | DRG 207 ==
LOC: ER 10:00 → ICUW 12:42 → ERHOLD 12:42 → PCU 14:50 → ICUW 06-21 13:55
PROVIDERS: Family Medicine; Internal Medicine Critical Care Medicine; Internal Medicine Pulmonary Disease; Physician Assistant; ADMIT Family Medicine
PROC: 8E0ZXY6 Isolation (ICD-10-PCS; principal; 2021-06-14)
PROC: 5A09557 Assistance with Respiratory Ventilation, Greater than 96 Consecutive Hours, Continuous Positive Airway Pressure (ICD-10-PCS; 2021-06-14)
PROC: 5A1955Z Respiratory Ventilation, Greater than 96 Consecutive Hours (ICD-10-PCS; 2021-06-14)
PROC: 3E033XZ Introduction of Vasopressor into Peripheral Vein, Percutaneous Approach (ICD-10-PCS; 2021-06-16)
PROC: XW033E5 Introduction of Remdesivir Anti-infective into Peripheral Vein, Percutaneous Approach, New Technology Group 5 (ICD-10-PCS; 2021-06-20)
PROC: 3E0333Z Introduction of Anti-inflammatory into Peripheral Vein, Percutaneous Approach (ICD-10-PCS; 2021-06-20)
PROC: XW033H5 Introduction of Tocilizumab into Peripheral Vein, Percutaneous Approach, New Technology Group 5 (ICD-10-PCS; 2021-06-20)
PROC: 0BH18EZ Insertion of Endotracheal Airway into Trachea, Via Natural or Artificial Opening Endoscopic (ICD-10-PCS; 2021-06-22)
PROC: 02HV33Z Insertion of Infusion Device into Superior Vena Cava, Percutaneous Approach (ICD-10-PCS; 2021-06-22)
PROC: 03HY32Z Insertion of Monitoring Device into Upper Artery, Percutaneous Approach (ICD-10-PCS; 2021-06-25)
PROC: 4A133B1 Monitoring of Arterial Pressure, Peripheral, Percutaneous Approach (ICD-10-PCS; 2021-06-25)
PROC: 4A133J1 Monitoring of Arterial Pulse, Peripheral, Percutaneous Approach (ICD-10-PCS; 2021-06-25)
DX: U07.1 COVID-19 (principal); J12.82 Pneumonia due to coronavirus disease 2019; J80 Acute respiratory distress syndrome; Q61.3 Polycystic kidney, unspecified; K21.9 Gastro-esophageal reflux disease without esophagitis; E78.2 Mixed hyperlipidemia; M10.9 Gout, unspecified; B18.2 Chronic viral hepatitis C; I95.9 Hypotension, unspecified; I27.20 Pulmonary hypertension, unspecified; Z98.52 Vasectomy status; Z98.890 Other specified postprocedural states; Z79.899 Other long term (current) drug therapy
CPT/HCPCS: 31500; 36415; 36556; 36600; 36620; 51702; 71045; 71260; 76705; 80048; 80053; 81001; 82728; 82803; 82947; 83735; 83880; 84100; 84132; 85025; 85610; 85651; 86140; 86850; 86900; 86901; 86923; 87070; 87106; 87205; 93005; 93010; 93306; 94002; 94003; 94640; 94660; 94667; 94668; 94762; 96365-59; 96372-59; 96375-59; 99285-25; A9270; C1751; C8929; J0282; J0456; J0696; J1100; J1644; J1650; J1885; J1940; J2060; J2370; J2704; J2930; J3010; J3262; J7030; J7040; J7050; J7060; Q9967

== ENCOUNTER → 2022-07-05 | Outpatient (CLI) | payer OTHER ==
[2022-07-05 17:17] LABS: BASOPHILS ABSOLUTE AUTO 0.05 K/mm3 (0.00-0.23); BASOPHILS PERCENT AUTO 1 % (0-2); EOSINOPHILS ABSOLUTE AUTO 0.18 K/mm3 (0.00-0.68); EOSINOPHILS PERCENT AUTO 3 % (0-6); Hematocrit 42.7 % (37.0-53.0); Hemoglobin 14.2 g/dL (13.5-17.5); IMMATURE GRAN ABSOLUTE AUTO 0.02 K/mm3 (0.00-0.10); IMMATURE GRAN PERCENT AUTO 0 % (0-1); LYMPHOCYTES ABSOLUTE AUTO 1.44 K/mm3 (0.84-5.20); LYMPHOCYTES PERCENT AUTO 20 % (21-46); MONOCYTES PERCENT AUTO 11 % (4-13); Mean Corpuscular HGB 28.7 pg (26.0-34.0); Mean Corpuscular HGB Conc 33.3 g/dL (31.5-36.5); Mean Corpuscular Volume 86 fL (80-100); Mean Platelet Volume 9.6 fL (9.1-12.4); NEUTROPHILS ABSOLUTE AUTO 4.83 K/mm3 (1.96-9.15); NEUTROPHILS PERCENT AUTO 66 % (41-73); Platelet Count 215 K/mm3 (150-400); RDW Coefficient Variation 13.2 % (11.7-14.2); RDW Standard Deviation 41.3 fL (35.1-46.3); Red Blood Cell Count 4.95 M/mm3 (4.30-5.90); White Blood Cell Count 7.32 K/mm3 (4.00-11.30)
[2022-07-05 17:37] LABS: Albumin/Globulin Ratio 1.2 (0.8-1.8); Bilirubin, Total 0.2 mg/dL (0.1-1.0); Bun/Creatinine Ratio 14.4 (12.0-20.0); Calcium, Blood 8.7 mg/dL (8.5-10.1); Creatinine, Blood 1.67 mg/dL (0.60-1.20); Globulin, Blood 3.3 g/dL (2.2-4.0); Potassium, Blood 4.2 mmol/L (3.5-5.5); Thyroid Stimulating Hormone 1.363 uIU/mL (0.360-4.800); Total Protein, Blood 7.3 g/dL (6.4-8.2)
== END ==
LOC: LAB SHORT 17:13 → LAB 17:13
PROVIDERS: Physician Assistant
DX: R53.83 Other fatigue (principal); R07.9 Chest pain, unspecified
CPT/HCPCS: 80053; 84443; 84484; 85025

== ENCOUNTER 2022-11-09 12:56 | Day surgery (SDC) | payer BC, OTHER ==
[~2022-11-09] VITALS: Ht 180.3 cm; Wt 114.3 kg
== END 2022-11-09 15:10 | disposition home or self-care (01) ==
LOC: ORSCSDS 12:56
PROVIDERS: Surgery
PROC: 0DBK8ZX Excision of Ascending Colon, Via Natural or Artificial Opening Endoscopic, Diagnostic (ICD-10-PCS; principal; 2022-11-09 14:00)
PROC: 0DBP8ZX Excision of Rectum, Via Natural or Artificial Opening Endoscopic, Diagnostic (ICD-10-PCS; principal; 2022-11-09 14:00)
DX: Z12.11 Encounter for screening for malignant neoplasm of colon (principal); Z91.89 Other specified personal risk factors, not elsewhere classified; Z80.0 Family history of malignant neoplasm of digestive organs; D12.2 Benign neoplasm of ascending colon; K62.1 Rectal polyp; K64.4 Residual hemorrhoidal skin tags; E78.5 Hyperlipidemia, unspecified; F17.210 Nicotine dependence, cigarettes, uncomplicated; B19.20 Unspecified viral hepatitis C without hepatic coma
CPT/HCPCS: 88305; J0330; J0461; J2405; J2704; J7120; Q9968

== ENCOUNTER 2022-11-22 05:58 | Day surgery (SDC) | payer BC, OTHER ==
[~2022-11-22] VITALS: Ht 180.3 cm; Wt 115.4 kg
[~2022-11-22 05:58] MED LIST changes: +ALBU90OI INH; -ALLO100; +ALLO100 PO; +CETI5 PO; +FLUT1DIS5 INH; +MAGNESIUM OXID500 MG PO; -OMEP20ER; +OMEP20ER PO; -Prinivil10 MG; +Prinivil10 MG PO; +VITAMIN D310 MC4; +Vitamin C100 M1
--- NOTE | 2022-11-22 07:37 | NUR ---
Ambulatory in Day Surgery History, Chart, Medications and Allergies reviewed before start of procedure.Patient States Post-Procedure ride home has been arranged. FERNANDA AND LEFTY CLIPPED PER DR. KEEN'S REQUEST FOR AIRWAY SAFETY
--- NOTE | 2022-11-22 11:08 | NUR ---
PT BROUGHT TO DAY SURGERY FROM PACU. VSS. PT STATES INGUINAL PAIN 3/10. PT GIVEN CRACKERS AND JUICE AND TOLERATING WELL. PT HAS 3 INCISION SITES ALL C/D/I DERMABOND IN PLACE.
--- NOTE | 2022-11-22 12:05 | NUR ---
Patient up to Ambulate independently. Gait steady. Discharge instructions reviewed with patient AND . Patient verbalizes understanding. Copy given to patient to take home. Patient States Post-Procedure ride home has been arranged. Discharged via wheelchair to private car for ride home. SURGICAL SITES C/D/I WITH DERMABOND IN PLACE.
== END 2022-11-22 23:04 | disposition home or self-care (01) ==
LOC: ORSCMMR 05:58
PROVIDERS: Surgery
PROC: 8E0W4CZ Robotic Assisted Procedure of Trunk Region, Percutaneous Endoscopic Approach (ICD-10-PCS; principal; 2022-11-22 07:30)
PROC: 0VB50ZZ Excision of Scrotum, Open Approach (ICD-10-PCS; principal; 2022-11-22 07:30)
PROC: 0YU64JZ Supplement Left Inguinal Region with Synthetic Substitute, Percutaneous Endoscopic Approach (ICD-10-PCS; principal; 2022-11-22 07:30)
DX: K40.30 Unilateral inguinal hernia, with obstruction, without gangrene, not specified as recurrent (principal); I10 Essential (primary) hypertension; B18.2 Chronic viral hepatitis C; G44.049 Chronic paroxysmal hemicrania, not intractable; Z86.16 Personal history of COVID-19; E78.5 Hyperlipidemia, unspecified
CPT/HCPCS: 49650; 11200; S2900; A9270; C1781; J1100; J1885; J2405; J2704; J2795; J3010; J7120

== ENCOUNTER → 2023-03-01 | Outpatient (CLI) | payer BC, OTHER | END | disposition home or self-care (01) | LOC: LAB SHORT 15:00 → LAB 15:00 | DX: H92.12 Otorrhea, left ear (principal) | CPT/HCPCS: 87070; 87205 ==

== ENCOUNTER → 2023-03-28 | Outpatient (CLI) | payer BC, OTHER | LOC: LAB 12:53 → LAB SHORT 12:53 | DX: J84.178 Other interstitial pulmonary diseases with fibrosis in diseases classified elsewhere (principal) | CPT/HCPCS: 87070; 87077; 87147; 87186; 87205 ==